=== PATIENT | female | born 1990 | race Hispanic/Latino ===

== ENCOUNTER 2017-03-29 22:21 | Emergency (ER) | payer MEDICAID ==
[~2017-03-29] VITALS: Ht 157.5 cm; Wt 117.9 kg
[~2017-03-29 22:21] MED LIST: ALBUTEROL2.5 MG/3 M INH; BACLOFEN10 MG PO; CLARITIN10 M2 PO; CLONIDINE HCL0.1 MG PO; DEPAKOTE250 MG PO; DICLOFENAC SODI75 MG PO; EPIPEN 2-P0.3 MG/0.3 IM; ERYTHROMYCIN250 MG PO; FLOVENT DISKUS50 MCG INH; METFORMIN HCL850 MG PO; MINIPRESS1 MG PO; MONTELUKAST SOD10 MG PO; NEXPLANON68 MG SUB-Q; PANOXYL10 GM TP; PROAIR RESPICL90 MCG IH; PULMICORT FLE180 MCG INH; TRETIN-X 0.0251 EAC1 TOP; WELLBUTRIN XL300 MG PO
== END 2017-03-30 01:40 | disposition home or self-care (01) ==
LOC: ED 22:21
DX: Z00.8 Encounter for other general examination (principal); R45.851 Suicidal ideations; F31.9 Bipolar disorder, unspecified; F43.10 Post-traumatic stress disorder, unspecified; Z88.5 Allergy status to narcotic agent; Z88.1 Allergy status to other antibiotic agents; Z88.8 Allergy status to other drugs, medicaments and biological substances; Z91.040 Latex allergy status; Z88.0 Allergy status to penicillin; Z88.2 Allergy status to sulfonamides; Z88.6 Allergy status to analgesic agent
CPT/HCPCS: 80053; 80176; 81001; 84443; 84703; 85025; 99283; G0480

== ENCOUNTER 2017-07-08 06:45 | Emergency (ER) | payer OTHER, MEDICAID ==
[~2017-07-08] VITALS: Ht 157.5 cm; Wt 117.9 kg
[2017-07-08] MEDS ORDERED: MONTELUKAST SOD10 MG PO (06:58)
[2017-07-08] MEDS ORDERED: DOXYCYCLINE MO100 MG PO (06:58)
== END 2017-07-08 11:31 | disposition home or self-care (01) ==
LOC: ED 06:45
DX: R45.851 Suicidal ideations (principal); E66.01 Morbid (severe) obesity due to excess calories; Z88.5 Allergy status to narcotic agent; Z88.1 Allergy status to other antibiotic agents; Z88.2 Allergy status to sulfonamides; Z88.6 Allergy status to analgesic agent; Z91.040 Latex allergy status; Z79.899 Other long term (current) drug therapy
CPT/HCPCS: 80053; 80176; 81001; 84443; 84703; 85025; 99284; G0480

== ENCOUNTER 2018-01-08 14:45 | Emergency (ER) | payer MEDICAID ==
[~2018-01-08] VITALS: Ht 154.9 cm; Wt 111.1 kg
[~2018-01-08 14:45] MED LIST changes: +DOXYCYCLINE MO100 MG PO
[2018-01-08] MEDS ORDERED: EPINEPHRIN0.3 MG/0.3 IM (14:55)
[2018-01-08] MEDS ORDERED: VENTOLIN HFA18 GM INH (14:55)
[2018-01-08] MEDS ORDERED: PEPCID20 MG PO (16:24)
[2018-01-08] MEDS ORDERED: DELTASONE20 MG PO (16:24)
[2018-01-08] MEDS ORDERED: EPIPEN 2-P0.3 MG/0.3 IM (16:24)
[2018-01-08] MEDS ORDERED: ZYRTEC10 MG PO (16:24)
== END 2018-01-08 16:35 | disposition home or self-care (01) ==
LOC: ED 14:45
DX: T78.40XA Allergy, unspecified, initial encounter (principal); J45.909 Unspecified asthma, uncomplicated; E11.9 Type 2 diabetes mellitus without complications; Z88.5 Allergy status to narcotic agent; Z88.1 Allergy status to other antibiotic agents; Z91.040 Latex allergy status; Z88.0 Allergy status to penicillin; Z88.2 Allergy status to sulfonamides
CPT/HCPCS: 96361; 96374; 96375; 99284; J1200; J2930; J7030